=== PATIENT | female | born 1970 | race Caucasian/White ===

== ENCOUNTER 2018-07-17 12:21 | Emergency (ER) | payer MEDICAID ==
[~2018-07-17] VITALS: Ht 157.5 cm; Wt 55.0 kg
[2018-07-17 12:37] VITALS: BP 146/88
[2018-07-17] MEDS ORDERED: KETOROLAC 30 MG/1 ML ONE (12:50)
[2018-07-17] MEDS ORDERED: KETOROLAC 30 MG/1 ML IM ONE (13:00)
--- NOTE | 2018-07-17 13:00 | NUR ---
heard 'pop' R knee when she twisted it while walking yesterday. Painful (12/09) to bear weight. Knee positioned at 30degree angle for pt's comfort. Medicated w/ toradol as per emar. X-ray pending.
--- NOTE | 2018-07-17 13:58 | NUR ---
Pain R knee 4/10 at time of d/c. Knee immobilizer/crutches provided.
== END 2018-07-17 13:59 | disposition home or self-care (01) ==
LOC: ED 13:53
DX: S83.411A Sprain of medial collateral ligament of right knee, initial encounter (principal); X50.1XXA Overexertion from prolonged static or awkward postures, initial encounter; Y93.89 Activity, other specified; Y92.009 Unspecified place in unspecified non-institutional (private) residence as the place of occurrence of the external cause; Y99.8 Other external cause status
CPT/HCPCS: 73564; 96372; 99283; J1885